=== PATIENT | male | born 1995 | race Caucasian/White ===

== ENCOUNTER 2017-06-08 04:27 | Emergency (ER) | payer SELFPAY ==
[2017-06-08] MEDS ORDERED: Ondansetron ODT 8 MG TAB ONE (04:48)
[2017-06-08] MEDS ORDERED: Sucralfate 1 GM/10 ML UDCUP ONE (04:54)
[2017-06-08 05:28] LABS: Hemoglobin 14.1 g/dL (14.0-18.0); Mean Corpuscular HGB CONC 33.9 g/dL (32.0-36.0); Mean Corpuscular Hemoglobin 29.9 pg (27.0-31.0); Mean Corpuscular Volume 88.4 fl (80.0-94.0); Mean Platelet Volume 7.3 fL (7.4-10.4); Platelet Count 199 thou/uL (130-400); RBC Distribution Width 11.4 % (11.5-14.5); Red Blood Cell (RBC) Count 4.71 mill/uL (4.70-6.10); White Blood Cell (WBC) Count 4.4 thou/uL (4.8-10.8)
[2017-06-08] MEDS ORDERED: Promethazine HCl 25 MG/ML VIAL ONE (05:29)
[2017-06-08 05:44] LABS: ALT (SGPT) 57 U/L (8-55); AST (SGOT) 37 U/L (5-34); Albumin 4.1 g/dL (3.5-5.0); Alkaline Phosphatase 94 U/L (40-150); Anion Gap 9 mmol/L (10-20); BUN (Urea Nitrogen) 9 mg/dL (8.9-20.6); Bilirubin, Total 0.2 mg/dL (0.2-1.2); Calc. Creatinine Clearance 0 mL/min (70-130); Calcium 9.1 mg/dL (7.8-10.44); Carbon Dioxide 26 mmol/L (22-29); Chloride 108 mmol/L (98-107); Estimated GFR-MDRD Greater than 90; Globulin 2.4 g/dL (2.4-3.5); Glucose 92 mg/dL (70-105); Lipase 34 U/L (8-78); Potassium 3.7 mmol/L (3.5-5.1); Protein, Total 6.5 g/dL (6.0-8.3); Sodium 139 mmol/L (136-145)
[2017-06-08 05:46] LABS: Band 2 % (5-11); Eosinophils 7 % (0-10); Lymphocytes 34 % (21-51); MDiff Complete? YES; Monocytes 4 % (0-10); Neutrophil 47 % (42-75); Reactive Lymphocytes 6 % (0-10)
[2017-06-08] MEDS ORDERED: Ketorolac Tromethamine 30 MG/ML VIAL ONE (05:52)
[2017-06-08 06:03] LABS: Bilirubin Negative (Negative); Blood, Urine Negative (Negative); Clarity CLEAR (Clear); Glucose, Urine (Dipstick) Negative (Negative); Leukocyte Negative (Negative); Nitrite Negative (Negative); Protein, Urine (Dipstick) Negative (Neg-Trace); Specific Gravity, Urine 1.025 (1.002-1.036); Urobilinogen 0.2 mg/dL (0.2-1.0)
[2017-06-08] MEDS ORDERED: Pantoprazole 40 MG VIAL ONE (06:31)
[2017-06-08] MEDS ORDERED: ISOVUE-370 76%-LOCM 1 ML ONE (15:19)
--- NOTE | 2017-06-08 19:09 | CT ---
PRELIMINARY REPORT/[facility]/EMERGENTY AFTER-HOURS PROCEDURE CT Abdomen and Pelvis With Intravenous Contrast CLINICAL HISTORY: 21 years old, male; Pain; Abdominal pain; Generalized; Patient HX: M22 C/O epigastric pain that start ed 30 minutes ago with nv that started on and diarrhea that started earlier today. Pt report s that vomit was black and coffee ground like with metallic taste in mouth. Pt reports some lower sendy k pain and dysuria. Pt reports surgical HX of appendicitis and gall bladder; HX of chronic pancreatit is. Pt reports f yesterday max was 101. TECHNIQUE: Axial computed tomography images of the abdomen and pelvis with intravenous contrast. Coronal reforma tted images were created and reviewed. CONTRAST: 95 mL of isovue 370 administered intravenously. COMPARISON: No relevant prior studies available. FINDINGS: Lung bases: Unremarkable. No mass. No consolidation. ABDOMEN: Liver: Unremarkable. No mass. Gallbladder and bile ducts: Cholecystectomy. There is mild air within the biliary tree probably relat ed to postoperative change. No ductal dilation. Pancreas: Unremarkable. No mass. No ductal dilation. Spleen: Unremarkable. No splenomegaly. Adrenals: Unremarkable. No mass. Kidneys and ureters: Unremarkable. No solid mass. No hydronephrosis. Stomach and bowel: Mild to moderate residual stool. No bowel obstruction. No mucosal thickening. PELVIS: Appendix: Appendectomy. Bladder: Unremarkable. No mass. Reproductive: Unremarkable as visualized. ABDOMEN and PELVIS: Intraperitoneal space: Unremarkable. No free air. No significant fluid collection. Bones/joints: No acute fracture. No dislocation. Soft tissues: Unremarkable. Vasculature: Unremarkable. No abdominal aortic aneurysm. Lymph nodes: Unremarkable. No enlarged lymph nodes. IMPRESSION: No CT evidence for pancreatitis. However, early pancreatitis can have normal CT appearance. Please co rrelate with laboratory values. Mild to moderate residual stool. No bowel obstruction. Thank you for allowing us to participate in the care of your patient. Dictated and Authenticated by: Yary Lim DO 06/08/2017 6:57 AM Central Time ([place] & [place]) FINAL REPORT EMERGENT AFTER HOURS CT ABDOMEN AND PELVIS: IMPRESSION: Agree with the preliminary interpretation given by [facility]. POS: [facility]
== END 2017-06-08 07:38 | disposition home or self-care (01) ==
LOC: ERS 04:27
DX: R10.13 Epigastric pain (principal); R11.2 Nausea with vomiting, unspecified; Z79.899 Other long term (current) drug therapy
CPT/HCPCS: 74177; 80053; 81003; 82274; 83690; 85025; 96365; 96366; 96375; C9113; J1885; J2550

== ENCOUNTER 2018-02-13 17:07 | Inpatient (IN) | payer BC, SELFPAY ==
[~2018-02-13 17:07] MED LIST: Iopamidol 370 76% 100 ML VIAL ONE
[2018-02-13 17:31] LABS: #Eosinphils 0.1 thou/uL (0.0-0.7); #Lymphocytes 0.8 thou/uL (1.20-3.40); #Monocytes 0.4 thou/uL (0.11-0.59); #Neutrophils 4.1 thou/uL (1.40-6.50); %Basophils 0.5 % (0.0-1.0); %Eosinophils 2.7 % (0.0-10.0); %Lymphocytes 14.9 % (21.0-51.0); %Monocytes 7.3 % (0.0-10.0); %Neutrophils 74.7 % (42.0-75.0); Hemoglobin 13.3 g/dL (14.0-18.0); Mean Corpuscular HGB CONC 32.9 g/dL (32.0-36.0); Mean Corpuscular Hemoglobin 28.4 pg (27.0-31.0); Mean Corpuscular Volume 86.3 fL (78.0-98.0); Platelet Count 209 thou/uL (130-400); Red Blood Cell (RBC) Count 4.68 mill/uL (4.70-6.10); White Blood Cell (WBC) Count 5.5 thou/uL (4.8-10.8)
[2018-02-13 17:53] LABS: ALT (SGPT) 20 U/L (8-55); AST (SGOT) 18 U/L (5-34); Albumin 4.5 g/dL (3.5-5.0); Alkaline Phosphatase 77 U/L (40-150); Anion Gap 11 mmol/L (10-20); BUN (Urea Nitrogen) 4 mg/dL (8.9-20.6); Bilirubin, Total 0.3 mg/dL (0.2-1.2); Calc. Creatinine Clearance 0 mL/min (70-130); Calcium 9.5 mg/dL (7.8-10.44); Carbon Dioxide 27 mmol/L (22-29); Chloride 107 mmol/L (98-107); Estimated GFR-MDRD Greater than 90; Globulin 3.1 g/dL (2.4-3.5); Glucose 112 mg/dL (70-105); Lipase 34 U/L (8-78); Potassium 3.7 mmol/L (3.5-5.1); Protein, Total 7.6 g/dL (6.0-8.3); Sodium 141 mmol/L (136-145)
[2018-02-13] MEDS ORDERED: HYDROmorphone 0.5 MG/0.5 ML SYRINGE ONE ×3 (18:37→22:18)
[2018-02-13] MEDS ORDERED: Ondansetron PF 4 MG/2 ML Vial ONE ×2 (18:37→20:41)
--- NOTE | 2018-02-13 21:13 | CT ---
ABDOMEN AND PELVIC CT SCAN WITH IV CONTRAST: 02/13/18 HISTORY: 22-year-old male with history of abdominal pain and weakness with nausea, vomiting and diarrhea. COMPARISON: 06/08/17. FINDINGS: The lung bases are clear. Status post cholecystectomy and right upper quadrant surgical changes. The visualized liver is unremarkable without ductal dilatation. Pancreas, spleen, adrenal glands, are unr emarkable. No renal calculus or acute obstruction. There is a percutaneous gastrostomy and percuta neous jejunostomy tubes in place. No evidence for large or small bowel obstruction. No CT evidence fo r acute appendicitis. Urinary bladder is unremarkable. IMPRESSION: Status post cholecystectomy without ductal dilatation. Status post gastrostomy and jejunostomy tubes. No bowel obstruction, free intraperitoneal fluid within the abdomen or pelvis, or other significant acute process. POS: [facility]
[2018-02-13] MEDS ORDERED: Promethazine HCl 25 MG/ML VIAL ONE (21:32)
[2018-02-13] MEDS ORDERED: Zolpidem Tartrate 5 MG TAB PO PRN (22:45)
[2018-02-13] MEDS ORDERED: HYDROcodone/Acetaminophen 5/325 mg Tablet PO PRN (22:45)
[2018-02-13] MEDS ORDERED: Morphine 4 MG/ML VIAL SLOW IVP PRN (22:45)
[2018-02-13] MEDS ORDERED: Ondansetron ODT 4 MG TAB PO PRN (22:45)
[2018-02-13] MEDS ORDERED: Bisacodyl 5 MG TAB PO PRN (22:45)
[2018-02-13] MEDS ORDERED: Acetaminophen 325 MG TAB PO PRN (22:45)
[2018-02-13] MEDS ORDERED: Loperamide HCl 2 MG CAP PO PRN (22:45)
[2018-02-13] MEDS ORDERED: Calcium Carbonate 500 MG ChewTAB PO PRN (22:45)
[2018-02-13] MEDS ORDERED: Senokot S 8.6-50 MG TAB PO PRN (22:45)
[2018-02-13] MEDS ORDERED: Bisacodyl 10 MG SUPP PR PRN (22:45)
[2018-02-13] MEDS ORDERED: Ondansetron ODT 4 MG TAB SL PRN (22:46)
[2018-02-13] MEDS ORDERED: Ondansetron PF 4 MG/2 ML Vial IVP PRN (22:46)
[2018-02-13 22:52] LABS: Bilirubin Negative (Negative); Blood, Urine Negative (Negative); Clarity CLEAR (Clear); Glucose, Urine (Dipstick) Negative (Negative); Leukocyte Trace (Negative); Nitrite Negative (Negative); Protein, Urine (Dipstick) Negative (Neg-Trace); Specific Gravity, Urine 1.023 (1.002-1.036); Urobilinogen 0.2 mg/dL (0.2-1.0)
[2018-02-13 22:53] LABS: Bacteria/HPF None Seen HPF (None Seen); Hyaline Casts/LPF 0-3 HYALINE CAST LPF (0-3 Hyaline); Pathc Cast-AUWi Flag 0.14 (0-2.49); RBC/HPF 0-3 HPF (0-3); Squamous Epithelial 0-3 HPF (0-3); WBC/HPF 0-3 HPF (0-3)
[2018-02-13 22:54] VITALS: BMI 23.5
[2018-02-14] MEDS ORDERED: Fentanyl 100 MCG/2 ML VIAL SLOW IVP PRN (00:02)
--- NOTE | 2018-02-14 01:02 | HP ---
PRIMARY CARE PHYSICIAN: Dr. James Medina. REASON FOR ADMISSION: Nausea, vomiting, and abdominal pain. HISTORY OF PRESENT ILLNESS: A 22-year-old male, who has complicated previous surgical history. He reports that he had bile duct replaced and subsequently, he was diagnosed with chronic pancreatitis. He required several surgeries on his abdomen. He has currently gastric tube as well as a jejunal tube in place. He came to emergency room with complaint of nausea, vomiting, and abdominal pain. The patient does have chronic abdominal pain. He was treated in the emergency room , but his pain and nausea and vomiting did not improve, and that is why ER physician decided to keep this patient in the hospital. This patient is following specialist in [place] and [place], and he reports that he has followup appointment with them on coming Saturday. REVIEW OF SYSTEMS: CONSTITUTIONAL: Negative for weight loss or gain, ability to conduct usual activities. SKIN: Negative for rash, itching. EYES: Negative for double vision, pain. ENT/MOUTH: Negative for nose bleeding, neck stiffness, pain, tenderness. CARDIOVASCULAR: Negative for palpitations, dyspnea on exertion, orthopnea. RESPIRATORY: Negative for shortness of breath, wheezing, cough, hemoptysis, fever or night sweats. GASTROINTESTINAL: Negative for poor appetite, abdominal pain, heartburn, nausea , vomiting, constipation, or diarrhea. GENITOURINARY: Negative for urgency, frequency, dysuria, nocturia. MUSCULOSKELETAL: Negative for pain, swelling. NEUROLOGIC/PSYCHIATRIC: Negative for anxiety, depression. ALLERGY/IMMUNOLOGIC: Negative for skin rash, bleeding tendency. Please see my HPI for pertinent positives and negatives. All other review of systems reviewed and negative except as mentioned in HPI. EMERGENCY ROOM COURSE: The patient is given Phenergan 12.5 mg x2, Dilaudid 0.5 mg x3, IV fluid, and Zofran 4 mg. PAST MEDICAL HISTORY: Chronic pancreatitis. PAST SURGICAL HISTORY: Ear tube x7, testicular torsion surgery, bile duct stent placement, bile duct bypass, celiac block, small-bowel surgery, appendicectomy, cholecystectomy, hernia repair, right wrist surgery, tonsillectomy, and pylorotomy. PAST PSYCHIATRIC HISTORY: Reviewed and negative. SOCIAL HISTORY: The patient lives at home. No history of tobacco, alcohol, or illicit drug abuse. FAMILY HISTORY: No family history of CAD, CVA or cancer. ALLERGIES: AMBIEN, AMOXICILLIN, FENTANYL, LATEX, MORPHINE, AND PENICILLIN. CURRENT HOME MEDICATIONS: 1. Prevacid 30 mg daily. 2. Zofran p.r.n. 3. Phenergan p.r.n. PHYSICAL EXAMINATION: VITAL SIGNS: Currently; blood pressure 125/68, pulse 72, respiratory rate 16, temperature 98.2, and saturation 99% on room air. Weight is 68 kg. GENERAL: The patient is currently alert, awake. No obvious acute distress. HEENT: Head; normocephalic and atraumatic. Eyes; pupils are round and reactive to light. Extraocular muscles intact. ENT; oropharynx within normal limits. Moist mucous membranes. No oral lesion. No pharyngeal erythema. No exudate. NECK: Supple. No JVD. No thyromegaly. No carotid bruit. LUNGS: Clear to auscultation without any rhonchi or rales. CARDIAC: S1 and S2. Regular without any murmur. ABDOMEN: Vague discomfort noted. Gastric tube as well as jejunal tube noted. No peritoneal sign. No rebound. No suprapubic tenderness. BACK: Unremarkable. No CVA tenderness. EXTREMITIES: Upper extremities; passive movement of all joints are normal. Lower extremities; no edema. Good distal pulsation. SKIN: No skin rash. HEMATOLOGICAL: No lymphadenopathy. NEUROLOGIC: Nonfocal examination. SIGNIFICANT LABORATORY DATA: CBC; WBC 5.5, hemoglobin 13.3, and platelets 209. BMP; sodium 141, potassium 3.7, chloride 107, carbon dioxide 27, anion gap 11, BUN 4, creatinine 0.87, glucose 112, and calcium 9.5. LFT; AST 18, ALT 20, alkaline phosphatase 77, albumin 4.5, and lipase 34. Urinalysis unremarkable. Stool for guaiac, negative. Abdomen and pelvis CT scan reviewed by me and reported as post cholecystectomy without ductal dilatation, post gastrostomy, and a jejunostomy tube in place. ASSESSMENT: 1. Intractable nausea and vomiting. 2. Intractable abdominal pain. 3. History of complicated previous surgery for chronic pancreatitis. 4. Gastroesophageal reflux disease. 5. History of chronic pancreatitis. PLAN: Pain control. The patient is allergic to multiple pain medications. We will consult Anesthesia in the morning for possible INSURANCE AGENT. Symptomatic treatment for nausea and vomiting. Continue Pepcid 20 mg IV b.i.d. and Zofran on p.r.n. basis. Continue IV fluid. Restart tube feeding, when the patient is able to bring his tube feeding material. Gastroenterology consultation. Plan of care discussed with the patient and his father. Medication as tolerated through the tube. Deep venous thrombosis prophylaxis, SCD boots. Gastrointestinal prophylaxis, Pepcid 20 mg IV b.i.d. CODE STATUS: The patient is full code. 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 Job ID: [id number] [facility]
[2018-02-14] MEDS: HYDROmorphone 2 MG TAB PER TUBE PRN ×2 (02:09→09:51)
[2018-02-14] MEDS: Ondansetron PF 4 MG/2 ML Vial IVP PRN ×3 (03:19→21:02)
[2018-02-14 06:04] LABS: #Eosinphils 0.3 thou/uL (0.0-0.7); #Lymphocytes 1.8 thou/uL (1.20-3.40); #Monocytes 0.4 thou/uL (0.11-0.59); #Neutrophils 2.2 thou/uL (1.40-6.50); %Basophils 0.9 % (0.0-1.0); %Eosinophils 7.2 % (0.0-10.0); %Monocytes 8.5 % (0.0-10.0); %Neutrophils 45.4 % (42.0-75.0); Hemoglobin 12.7 g/dL (14.0-18.0); Mean Corpuscular HGB CONC 33.4 g/dL (32.0-36.0); Mean Corpuscular Hemoglobin 28.9 pg (27.0-31.0); Mean Corpuscular Volume 86.5 fL (78.0-98.0); Mean Platelet Volume 8.2 fL (7.4-10.4); Platelet Count 190 thou/uL (130-400); RBC Distribution Width 12.1 % (11.5-14.5); White Blood Cell (WBC) Count 4.8 thou/uL (4.8-10.8)
[2018-02-14 06:29] LABS: Anion Gap 12 mmol/L (10-20); BUN (Urea Nitrogen) Less than 4 mg/dL (8.9-20.6); Calc. Creatinine Clearance 135 mL/min (70-130); Calcium 9.2 mg/dL (7.8-10.44); Carbon Dioxide 24 mmol/L (22-29); Chloride 108 mmol/L (98-107); Estimated GFR-MDRD Greater than 90; Glucose 79 mg/dL (70-105); Potassium 3.4 mmol/L (3.5-5.1); Sodium 141 mmol/L (136-145)
[2018-02-14] MEDS: Famotidine/PF 20 mg/2ml Vial SLOW IVP SCH ×2 (09:40→20:59)
[2018-02-14] MEDS: Sodium Chloride 0.9% 1,000 ML IV SCH ×2 (10:39→20:59)
[2018-02-14] MEDS ORDERED: Naloxone HCl 0.4 mg/ml Vial IV PRN (13:08)
[2018-02-14] MEDS ORDERED: diphenhydrAMINE 50 MG/ML VIAL IM PRN (13:08)
[2018-02-14] MEDS ORDERED: diphenhydrAMINE 25 MG CAP PO PRN (13:08)
[2018-02-14] MEDS ORDERED: Ondansetron PF 4 MG/2 ML Vial IVP PRN (13:08)
[2018-02-14] MEDS ORDERED: Promethazine HCl 25 MG/ML VIAL IM PRN (13:08)
[2018-02-14] MEDS ORDERED: diphenhydrAMINE 50 MG/ML VIAL IVP PRN (13:08)
[2018-02-14] MEDS ORDERED: Communication Order-Pharmacy FS SCH (13:15)
[2018-02-14] MEDS: HYDROmorphone 10 mg/100 ml CADD IVPB PRN (14:19)
[2018-02-14 16:20] LABS: Amphetamine Not Detected (NotDetected); Barbiturates Screen Not Detected (NotDetected); Benzodiazepine Screen Not Detected (NotDetected); Cocaine Metabolite Screen Not Detected (NotDetected); Medtox Control Line Valid? VALID (VALID); Medtox Reader # READER 1; Methadone Not Detected (NotDetected); Methamphetamine Not Detected (NotDetected); Opiate Screen Detected (NotDetected); Oxycodone Screen Not Detected (NotDetected); Phencyclidine (PCP) Not Detected (NotDetected); THC/Cannabinoid Screen Detected (NotDetected); Tricyclic Screen Not Detected (NotDetected)
--- NOTE | 2018-02-14 20:09 | PDOC.PN ---
- Subjective Encounter Start Date: 02/14/18 Encounter Start Time: 11:00 Subjective: Patient examined, woke patient up -: Alert x3, c/o of N/V and abdominal pain -: Vomited PO dilaudid - Objective Resuscitation Status - Order Detail: 02/13/18 22:03 Resuscitation Status Routine Resuscitation Status: FULL: Full Resuscitation Vital Signs & Weight: Vital Signs (12 hours) Temp Pulse Resp BP Pulse Ox 02/14/18 15:45 98.1 F 73 12 117/56 L 95 02/14/18 11:57 97.9 F 50 L 16 117/55 L 97 02/14/18 08:30 55 L Weight Admit Weight 68.13 kg Weight 68.13 kg I&O: 02/13/18 02/14/18 02/15/18 06:59 06:59 06:59 Intake Total 40 730 Output Total 80 Balance 40 650 Result Diagrams: 02/16/18 07:28 02/16/18 07:28 Phys Exam - Physical Examination HEENT: PERRLA, moist MMs Neck: no nodes, no JVD Respiratory: no wheezing, clear to auscultation bilateral Cardiovascular: RRR, no significant murmur TTP epigastric region Musculoskeletal: no edema, pulses present Neurological: non-focal, normal sensation Lymphatic: no nodes Psychiatric: normal affect, A&O x 3 Skin: no rash, normal turgor Dx/Plan (1) Abdominal pain Code(s): R10.9 - UNSPECIFIED ABDOMINAL PAIN Status: Acute (2) Nausea and vomiting in adult Code(s): R11.2 - NAUSEA WITH VOMITING, UNSPECIFIED Status: Acute - Plan Await GI consult -: Anesthesia consulted for pain management due to vomiting PO meds per tube -: Repeat lab work, continue IV fluids -: UA drug screen positive for THC, opiates * .
--- NOTE | 2018-02-15 03:06 | CON ---
DATE OF CONSULTATION: 02/14/2018 GASTROENTEROLOGY CONSULTATION NOTE CHIEF COMPLAINT: Abdominal pain. HISTORY OF PRESENT ILLNESS: Mr. Vines is a 22-year-old man, who presented with the last few days of severe epigastric sharp continuous pain and recurrent nausea and vomiting. He has a complicated surgical and GI history, but has a G-tube in place and a jejunal feeding tube in place. He gets most of his nutrition through his jejunal tube. He had been tolerating some things by mouth over the last few months. Over the last several days; however, he has been vomiting more. He did try marijuana couple of times, but has not been using that regularly. He does not like marijuana and states that he has no intention of using this longer term. He was admitted for pain control and IV fluids and currently is receiving a DATAPOWER DEVELOPER pump. He is ambulating and has had less vomiting today. He had appendectomy at age 8. At age 9, he started having more problems, and he underwent cholecystectomy. He was diagnosed with a congenital abnormality of the bile duct and underwent sphincterotomy and multiple biliary stents with multiple stones removed endoscopically recurrently between age 9 and 14. Finally underwent choledochojejunostomy at age 14. He has had a periumbilical hernia repair and two inguinal hernia repairs. At age 17, he was diagnosed with chronic pancreatitis. Between age 17 and this past September, he was having celiac plexus nerve blocks every six months. In 2016, he had a surgery for small bowel intussusception. He more recently has seen a doctor up in [place], who considered doing a total pancreatectomy and islet cell transplant. Ultimately, he ended up losing 40 pounds from 180 pounds down to 142 pounds from January 2017 to August 2017. Up in [place], he had a G-tube placed. He was then diagnosed with gastroparesis, and he underwent endoscopic pylorotomy. Still symptoms continue, he ultimately underwent jejunostomy placement. He is again is following with the surgeons in [place] and plan with them was to perform gastric bypass surgery. He has followup with his GI or surgeon up in [place] scheduled for four days from now. Due to the flare of the pain and nausea and vomiting, he was admitted last night. He did vomit some dark material, and he was advised head onto the emergency room. PAST MEDICAL HISTORY: Congenital disorder of the bile duct and chronic pancreatitis and gastroparesis. PAST SURGICAL HISTORY: Complicated surgical history including three hernia repairs and tonsil and adenoids, multiple tubes to his ears, recent wisdom tooth removal several days ago or last week. He has had multiple biliary stents and cholecystectomy and appendectomy and choledochojejunostomy. He has had surgery for small bowel intussusception. FAMILY HISTORY: Negative for GI malignancy or inflammatory bowel disease. SOCIAL HISTORY: No alcohol or tobacco. He has smoked marijuana few times recently but states this is not a chronic use, and he does not like, and does not intend to continue. ALLERGIES: TO LATEX, AMOXICILLIN, FENTANYL, MORPHINE, PENICILLIN, TRAMADOL, AND AMBIEN. MEDICATIONS: As an outpatient include Prevacid, Zofran, Phenergan, and pancreatic enzymes. Here in the hospital, he is on a DATAPOWER DEVELOPER pump, sodium chloride, and famotidine. REVIEW OF SYSTEMS: Negative x10 systems reviewed except as stated in the history of present illness. PHYSICAL EXAMINATION: VITAL SIGNS: Temperature 98.1, pulse 73, and blood pressure 117/56. GENERAL: He is in no acute distress. Alert and oriented x3. HEENT: Eyes have no scleral icterus. Oropharynx is clear without lesions. No cervical or supraclavicular lymphadenopathy. LUNGS: Are clear to auscultation bilaterally. HEART: Regular rate and rhythm without murmur. ABDOMEN: Soft and tender diffusely. Bowel sounds are present. EXTREMITIES: No lower extremity edema, as well in the abdomen he has a jejunal feeding tube in left lower quadrant, and he has a gastrostomy tube in the left upper quadrant is midline and scar of previous incision that healed by secondary intention. LABORATORY DATA: White blood cell count 4.8, hemoglobin 12.7, and platelets 190. Sodium 141, potassium 3.4, creatinine 0.82, bilirubin 0.3, AST 18, ALT 20, alkaline phosphatase 77, albumin 4.5, and lipase 34. Cannabinoids were positive on tox screen. IMPRESSION: 1. Chronic pancreatitis previously requiring celiac nerve plexus blocks every six months since age 17. 2. Gastroparesis with gastrostomy tube and jejunal feeding tube in place. 3. Flare of chronic epigastric pain and nausea. The vomiting appears to be better. He is up ambulating and appears comfortable. Currently, he is on a DATAPOWER DEVELOPER pump. RECOMMENDATIONS: 1. We will support with IV fluids and antiemetics as needed and pain control. 2. Hopefully, we will be able to get this flare under control, and he can follow up with his GI and surgeon up in [place] in few days as scheduled. 3. We should be able to restart the jejunal feedings soon. Certainly the opioids may decrease his motility, however. Job ID: [id number]
[2018-02-15] MEDS: Sodium Chloride 0.9% 1,000 ML IV SCH ×2 (05:17→15:45)
[2018-02-15 06:39] LABS: #Eosinphils 0.3 thou/uL (0.0-0.7); #Lymphocytes 1.7 thou/uL (1.20-3.40); #Monocytes 0.6 thou/uL (0.11-0.59); #Neutrophils 4.1 thou/uL (1.40-6.50); %Basophils 0.4 % (0.0-1.0); %Lymphocytes 24.9 % (21.0-51.0); %Monocytes 9.4 % (0.0-10.0); %Neutrophils 61.3 % (42.0-75.0); Hemoglobin 12.7 g/dL (14.0-18.0); Mean Corpuscular HGB CONC 33.2 g/dL (32.0-36.0); Mean Corpuscular Hemoglobin 28.9 pg (27.0-31.0); Mean Platelet Volume 8.2 fL (7.4-10.4); Platelet Count 168 thou/uL (130-400); RBC Distribution Width 11.9 % (11.5-14.5); Red Blood Cell (RBC) Count 4.41 mill/uL (4.70-6.10); White Blood Cell (WBC) Count 6.7 thou/uL (4.8-10.8)
[2018-02-15 07:03] LABS: ALT (SGPT) 18 U/L (8-55); AST (SGOT) 18 U/L (5-34); Alkaline Phosphatase 76 U/L (40-150); Anion Gap 11 mmol/L (10-20); BUN (Urea Nitrogen) 5 mg/dL (8.9-20.6); Bilirubin, Total 0.7 mg/dL (0.2-1.2); Calc. Creatinine Clearance 109 mL/min (70-130); Calcium 9.2 mg/dL (7.8-10.44); Carbon Dioxide 29 mmol/L (22-29); Chloride 106 mmol/L (98-107); Estimated GFR-MDRD Greater than 90; Globulin 2.7 g/dL (2.4-3.5); Glucose 84 mg/dL (70-105); Potassium 3.5 mmol/L (3.5-5.1); Protein, Total 6.7 g/dL (6.0-8.3); Sodium 142 mmol/L (136-145)
[2018-02-15] MEDS: Famotidine/PF 20 mg/2ml Vial SLOW IVP SCH ×2 (08:28→21:59)
[2018-02-15] MEDS: Ondansetron PF 4 MG/2 ML Vial IVP PRN (08:36)
[2018-02-15] MEDS: HYDROmorphone 10 mg/100 ml CADD IVPB PRN ×2 (12:19→23:20)
[2018-02-15] MEDS ORDERED: Ibuprofen 800 MG TAB PO PRN (12:22)
--- NOTE | 2018-02-15 13:21 | PDOC.PN ---
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 -: Reports several episodes of vomiting today, reports abd pain has improved - Objective Resuscitation Status - Order Detail: 02/13/18 22:03 Resuscitation Status Routine Resuscitation Status: FULL: Full Resuscitation Vital Signs & Weight: Vital Signs (12 hours) Temp Pulse Resp BP Pulse Ox 02/15/18 11:03 98.6 F 64 16 116/68 98 02/15/18 08:00 97 02/15/18 07:43 98.3 F 71 16 106/63 97 02/15/18 04:00 98.9 F 95 16 129/76 95 Weight Admit Weight 68.13 kg Weight 68.13 kg I&O: 02/14/18 02/15/18 02/16/18 06:59 06:59 06:59 Intake Total 40 2080 Output Total 80 Balance 40 1999 Result Diagrams: 02/15/18 05:49 02/15/18 05:49 Phys Exam - Physical Examination HEENT: PERRLA, moist MMs Neck: no nodes, no JVD Respiratory: clear to auscultation bilateral Cardiovascular: RRR Gastrointestinal: soft TTP to epigastric region Musculoskeletal: no edema, pulses present Neurological: non-focal, normal sensation, moves all 4 limbs Lymphatic: no nodes Psychiatric: normal affect, A&O x 3 Dx/Plan (1) Abdominal pain Code(s): R10.9 - UNSPECIFIED ABDOMINAL PAIN Status: Acute (2) Nausea and vomiting in adult Code(s): R11.2 - NAUSEA WITH VOMITING, UNSPECIFIED Status: Acute (3) Chronic pancreatitis Code(s): K86.1 - OTHER CHRONIC PANCREATITIS Status: Acute - Plan cont current plan of care Continue IV fluids, Anesthesia added IV phenergan for refractory n/v -: Feeding per J tube discussed with Dr. Lynn, will restart -: Patient would like to be dc'd home in time for his appt with his GI doctor -: Will continue to hydrate, wean off pain meds, consider DC home tomorrow -: if tube feeding is successful. * .
--- NOTE | 2018-02-15 15:36 | PRG ---
DATE OF SERVICE: 02/15/2018 SUBJECTIVE: Mr. Vines is up ambulating. He has been outside with his family. He still has vomited some clear liquids. He feels ready to restart his jejunal feeds. His pain is stable. OBJECTIVE: VITAL SIGNS: Temperature 98.6, pulse 64, blood pressure 116/68. GENERAL: He is in no acute distress. He is alert, oriented x3. LUNGS: Clear to auscultation bilaterally. HEART: Regular rate and rhythm. ABDOMEN: Soft, nontender, nondistended. Bowel sounds are present. EXTREMITIES: No lower extremity edema. LABORATORY DATA: White blood cell count 6.7, hemoglobin 12.7, platelets 168, creatinine 1.02, bilirubin 0.7, AST 18, ALT 18, alkaline phosphatase 76. RECOMMENDATIONS: 1. Restart jejunal tube feeds. 2. He will need to remain n.p.o. for now until his nausea and vomiting improves. 3. Recommend discontinuing the IV opioids at this point. He has chronic pain, which is stable. He has not received his celiac nerve block. He has been getting every six months. Instead, he is planning to discuss other options with his surgeon in [place] in a couple of days for an outpatient appointment. I would avoid opioid pain medications as these will not adequately resolve his pain and more likely just cause dependence and worsening of GI motility disorder. 4. Avoid cannabis. 5. He should be ready for discharge once he is tolerating the jejunal feeds. Job ID: [id number]
[2018-02-15] MEDS: Promethazine HCl 25 MG/ML VIAL SLOW IVP PRN (23:36)
[2018-02-16] MEDS: Sodium Chloride 0.9% 1,000 ML IV SCH ×3 (02:30→12:08)
[2018-02-16] MEDS: Famotidine/PF 20 mg/2ml Vial SLOW IVP SCH ×2 (07:54→20:19)
[2018-02-16 08:02] LABS: #Eosinphils 0.3 thou/uL (0.0-0.7); #Lymphocytes 1.4 thou/uL (1.20-3.40); #Monocytes 0.5 thou/uL (0.11-0.59); #Neutrophils 2.2 thou/uL (1.40-6.50); %Basophils 0.5 % (0.0-1.0); %Eosinophils 5.9 % (0.0-10.0); %Lymphocytes 31.8 % (21.0-51.0); %Monocytes 11.7 % (0.0-10.0); %Neutrophils 50.1 % (42.0-75.0); Hemoglobin 11.9 g/dL (14.0-18.0); Mean Corpuscular Hemoglobin 28.3 pg (27.0-31.0); Mean Corpuscular Volume 85.7 fL (78.0-98.0); Mean Platelet Volume 8.2 fL (7.4-10.4); Platelet Count 174 thou/uL (130-400); RBC Distribution Width 11.7 % (11.5-14.5); Red Blood Cell (RBC) Count 4.21 mill/uL (4.70-6.10); White Blood Cell (WBC) Count 4.5 thou/uL (4.8-10.8)
[2018-02-16 08:24] LABS: ALT (SGPT) 14 U/L (8-55); AST (SGOT) 15 U/L (5-34); Albumin 3.8 g/dL (3.5-5.0); Alkaline Phosphatase 67 U/L (40-150); Anion Gap 10 mmol/L (10-20); BUN (Urea Nitrogen) 5 mg/dL (8.9-20.6); Bilirubin, Total 0.4 mg/dL (0.2-1.2); Calc. Creatinine Clearance 133 mL/min (70-130); Calcium 8.8 mg/dL (7.8-10.44); Carbon Dioxide 27 mmol/L (22-29); Chloride 108 mmol/L (98-107); Estimated GFR-MDRD Greater than 90; Globulin 2.4 g/dL (2.4-3.5); Glucose 87 mg/dL (70-105); Protein, Total 6.2 g/dL (6.0-8.3); Sodium 141 mmol/L (136-145)
[2018-02-16] MEDS: Promethazine HCl 25 MG/ML VIAL SLOW IVP PRN ×2 (09:45→14:30)
--- NOTE | 2018-02-16 12:41 | PRG ---
DATE OF SERVICE: 02/16/2018 SUBJECTIVE: Mr. Vinse still feels nauseated today. His pain is doing pretty well. He is tolerating the jejunal tube feeds. OBJECTIVE: VITAL SIGNS: Temperature 98.5, pulse 66, blood pressure 100/57. GENERAL: He is in no acute distress. He is sleeping this morning. LUNGS: Clear to auscultation bilaterally. HEART: Regular rate and rhythm without murmur. ABDOMEN: Soft. Mild diffuse tenderness. Bowel sounds are present. EXTREMITIES: No lower extremity edema. IMPRESSION: 1. Gastroparesis and chronic motility disorder. The jejunal feeding tube in place. He has a G-tube in place as well. He is considering further surgical intervention with his surgeon in [place], plan is to follow up for the day after tomorrow. 2. Chronic abdominal pain. He has required celiac nerve blocks every 6 months for the last few years. I do not think we will solve his chronic pain symptoms with IV opioids. At this point, I would recommend trying to avoid these medications for him. RECOMMENDATIONS: 1. Now that he is tolerating his jejunal feeds he should be okay to discharge home today. 2. He will follow up with his GI surgeon up in [place]. 3. He can follow up in GI locally as needed. Job ID: [id number]
[2018-02-16] MEDS ORDERED: Promethazine 25 MG TAB PO PRN (15:21)
--- NOTE | 2018-02-16 15:23 | PDOC.PN ---
- Subjective Encounter Start Date: 02/16/18 Encounter Start Time: 15:22 Patient lying in bed, he reports pain better controlled however he continues with nausea and vomiting. GI determined stable from his stand point. He denies chest pain, shortness of breath. IV Dilaudid d/c today. - Objective Resuscitation Status - Order Detail: 02/13/18 22:03 Resuscitation Status Routine Resuscitation Status: FULL: Full Resuscitation MAR Reviewed: Yes Vital Signs & Weight: Vital Signs (12 hours) Temp Pulse Resp BP Pulse Ox 02/16/18 12:36 98.3 F 77 16 108/63 95 02/16/18 08:00 98.5 F 66 16 100/57 L 95 02/16/18 04:00 98.5 F 51 L 20 103/62 98 Weight Admit Weight 150 lb 3.2 oz Weight 150 lb 3.2 oz I&O: 02/15/18 02/16/18 02/17/18 06:59 06:59 06:59 Intake Total 2079 2700 Output Total 80 Balance 19990 Result Diagrams: 02/16/18 07:28 02/16/18 07:28 Radiology Reviewed by me: Yes Phys Exam - Physical Examination Constitutional: NAD HEENT: PERRLA, moist MMs, sclera anicteric, oral pharynx no lesions Neck: no nodes, no JVD, supple Respiratory: no wheezing, no rhonchi Cardiovascular: RRR, no significant murmur, no rub Gastrointestinal: soft, non-tender, positive bowel sounds J-tube in place Musculoskeletal: no edema, pulses present Neurological: non-focal, normal sensation, moves all 4 limbs Lymphatic: no nodes Psychiatric: normal affect, A&O x 3 Skin: no rash, normal turgor, cap refill <2 seconds Deviation from normal: Abdominal surgical scars Dx/Plan (1) Abdominal pain Code(s): R10.9 - UNSPECIFIED ABDOMINAL PAIN Status: Acute (2) Chronic pancreatitis Code(s): K86.1 - OTHER CHRONIC PANCREATITIS Status: Acute (3) Nausea and vomiting in adult Code(s): R11.2 - NAUSEA WITH VOMITING, UNSPECIFIED Status: Acute - Plan cont current plan of care, plan discussed w/ family * GI services determined patient to follow up in [place] Saturday. * He remains with N/V, d/v IV dilaudid and IV phenergan. * Continue with oral zofran and phenergan and monitor symptoms * He seems to be tolerating tube feedings. * Monitor overnight and once nausea improves, will d/c likely in the am
--- NOTE | 2018-02-16 16:31 | PRG ---
DATE OF SERVICE: 02/16/2018 SUBJECTIVE: The patient reports that he still has some pain and some nausea today. Did not seem to be any worse when he resumed his G-tube feeds. The patient reports he has some degree of pain and nausea all the time with rare exceptions. OBJECTIVE: VITAL SIGNS: Temperature 98.3, pulse 77, respirations 16, O2 saturation 95% on room air, and blood pressure 108/63. GENERAL APPEARANCE: Age-appropriate male, in no distress. HEART: Regular rate and rhythm. No murmurs. LUNGS: Clear bilaterally. ABDOMEN: Soft and nondistended. PEG tube is in place and looks healthy. EXTREMITIES: Warm and dry. LABORATORY DATA: White count 4.5. LFTs normal. IMPRESSION AND PLAN: 1. Chronic pancreatitis. 2. History of multiple prior abdominal surgeries. 3. Nausea and vomiting. The patient has been seen in consultation by GI. His history is complex and complicated. He has a chronic pain syndrome and chronic recurrent nausea and vomiting. These appear to be getting close to his baseline. He did require 1 dose of IV pain medication today, although, that has now been discontinued. Agree with GI's recommendation to avoid the opioids, which have now been discontinued. We will see how the patient does through the day; however, he is amenable to the idea we will discharge him in the morning as he needs to follow up with his GI surgeons in [place] the following day. Job ID: [id number]
[2018-02-16] MEDS ORDERED: Promethazine HCl 25 MG SUPP PR PRN (23:03)
[2018-02-17] MEDS: Sodium Chloride 0.9% 1,000 ML IV SCH ×3 (01:11→17:14)
[2018-02-17] MEDS: Famotidine/PF 20 mg/2ml Vial SLOW IVP SCH (07:59)
[2018-02-17 12:35] VITALS: TEMP 98.4
[2018-02-17 17:31] VITALS: BP 107/63
--- NOTE | 2018-02-18 07:08 | DIS ---
DATE OF ADMISSION: 02/13/2018 DATE OF DISCHARGE: 02/17/2018 PRIMARY CARE PROVIDER: No PCP locally. FINAL DIAGNOSES: Abdominal pain, gastroparesis, chronic pancreatitis, nausea and vomiting in adult. DISCHARGE MEDICATIONS: Discharge medicines are the same as his home medicine, which is Prevacid 30 mg p.o. b.i.d. ALLERGIES: AMOXICILLIN, FENTANYL, MORPHINE, TRAMADOL, AMBIEN. DIET: The patient has a GJ tube for feedings. CODE STATUS: Full. HOSPITAL COURSE: The patient referred to the [facility] by [facility]. He has complicated history. At the time of admission, a G-tube in place, a jejunal feeding tube in place, feedings through that. He had an appendectomy at 8 years of age, cholecystectomy, underwent a sphincterotomy and multiple biliary stents with multiple stones removed. Finally, he had a choledochojejunostomy at 14. He has had multiple hernia repairs. He has had celiac plexus nerve blocks. In 2017, he had a small bowel intussusception. He presented with abdominal pain, nausea, and vomiting. He was seen in consultation by Dr. Chris Lynn. He was treated for [employer] pump for pain medicines, given IV fluids, had tube feedings currently. He is ready to be discharged to keep his appointment with his surgeon in [place]. Discharge orders have been written. Pertinent studies included abdominal-pelvis CT, which revealed the post cholecystectomy with no ductal dilatation, gastrostomy jejunostomy tubes, no other acute process. His laboratories; CBCs showed a mild anemia of 11.9 to 13.3. Chemistry showed a low BUN, otherwise unremarkable. Liver function tests were normal. UA was clear. His drug screen revealed only THC and opiates. Currently, his abdomen is benign. His vital signs are stable. He is being discharged for followup by his surgeon in [place] tomorrow. Job ID: [id number]
== END 2018-02-17 18:13 | disposition home or self-care (01) | DRG 392 ==
LOC: ERS 17:07 → 2SW 21:30 → OBSVTOIN 21:30 → T4-B 02-14 19:31
PROVIDERS: ADMIT Internal Medicine; ATTEND Internal Medicine
PROC: 3E0H76Z Introduction of Nutritional Substance into Lower GI, Via Natural or Artificial Opening (ICD-10-PCS; principal; 2018-02-15)
DX: R10.9 Unspecified abdominal pain (principal); K86.1 Other chronic pancreatitis; Q44.5 Other congenital malformations of bile ducts; R11.2 Nausea with vomiting, unspecified; Z93.1 Gastrostomy status; Z93.4 Other artificial openings of gastrointestinal tract status; Z90.49 Acquired absence of other specified parts of digestive tract; Z88.6 Allergy status to analgesic agent; Z88.1 Allergy status to other antibiotic agents; Z88.0 Allergy status to penicillin; Z88.8 Allergy status to other drugs, medicaments and biological substances; Z97.8 Presence of other specified devices; K31.84 Gastroparesis; Z96.89 Presence of other specified functional implants; K21.9 Gastro-esophageal reflux disease without esophagitis
CPT/HCPCS: 36415; 74177; 80048; 80053; 80306; 81001; 82274; 83690; 85025; 90471; 90732; G0009; J1170; J2405; J2550; S0028